=== PATIENT | female | born 1980 | race Caucasian/White ===

== ENCOUNTER 2016-12-23 12:42 | Emergency (ER) | payer OTHER ==
[~2016-12-23] VITALS: Ht 162.6 cm; Wt 100.0 kg
[~2016-12-23 12:42] MED LIST: DOCU100C31 PO; IMIP25TA3 PO; INSU100I2 SC; INSUINJ4 SQ; ONDA4TAB46 PO
[2016-12-23 12:50] VITALS: Ht 162.6 cm; Wt 100.0 kg
[2016-12-23] MEDS ORDERED: HYDROmorphone INJ 2 MG/ML SYR/VIAL IV STA (13:55)
[2016-12-23] MEDS ORDERED: NITROGLYCERIN OINT 2% 1GM PACKET EXT PRN (14:00)
--- NOTE | 2016-12-23 14:08 | EMERGENCY ROOM VISIT NOTE ---
History First contact with patient: 13:44 Chief Complaint: ILLNESS Stated Complaint: CHEST PAIN,ABDOMINAL PAIN AND DIARRHEA History of Present Illness The patient is a 36 year old female with hypertension and recent diverticulitis who presents to the Emergency Room with a 5 day history of LLQ pain, non-bloody , mucous diarrhea. Today she had about 6 loose stools. She also reports a left sided chest pain that went to her left arm, that is currently a 2/10 severity. The chest pain has been waxing and waning. She also reports associated LLQ abdominal pain, which is in the same spot her diverticulitis was. She took a course of antibiotics Dec 05 or so for a week, reports she wasn't sure which ones (likely Cipro/Flagyl). She reports she has multiple allergies to anti-emetics which make her feel weird , but Zofran works. Review of Systems See HPI for pertinent positives & negatives. A total of 10 systems reviewed and were otherwise negative. Past Medical/Surgical History Medical Problems: (1) Hypertension Surgical Problems: (1) H/O tubal ligation (2) History of cholecystectomy (3) Hx of appendectomy Family History Cancer Diabetes mellitus Hypertension Seizures Mother had two strokes, starting at age 36. Father had an [facility] at age 50. Social History Smoking Status: Current Every Day Smoker (1 pack per day) Alcohol Use: none Drug Use: none Marital Status: Housing Status: lives with family Occupation Status: employed Current/Historical Medications Scheduled Amlodipine Besylate (Norvasc), 5 MG PO DAILY Imipramine Hcl (Imipramine Hcl), 50 MG PO HS Insulin Glargine (Lantus Solostar Pen), 75 UNITS SQ QAM Liraglutide (Victoza), 1.8 MG INJ DAILY Losartan Potassium (Cozaar), 100 MG PO DAILY Metoprolol Succinate (Toprol Xl), 25 MG PO DAILY Trazodone Hcl (Trazodone), 100 MG PO HS Scheduled PRN Ondansetron Hcl (Zofran), 4 MG PO Q6 PRN for Nausea Oxycodone/Acetaminophen 5MG/325MG (Percocet 5MG/325MG), 1-2 TAB PO Q4H PRN for Pain Allergies Coded Allergies: Doxycycline (Unverified Allergy, Severe, GI ISSUES. SEVERE VOMITING, ) Ketorolac Tromethamine (Verified Allergy, Unknown, "feels like I am having an anxiety attack", 12/23/16) Metoclopramide (Unverified Allergy, Unknown, HEART RATE INCREASES, ANXIETY , 12/23/16) Prochlorperazine (Verified Allergy, Unknown, "feels like I am having an anxiety attack", 12/23/16) Promethazine (Verified Allergy, Unknown, "feels like I am having an anxiety attack", 12/23/16) Physical Exam Vital Signs Date Time Temp Pulse Resp B/P Pulse Ox O2 Delivery O2 Flow Rate FiO2 12/23/16 16:03 85 18 157/105 98 Room Air 12/23/16 14:48 87 12/23/16 12:50 36.8 93 20 190/89 97 Room Air Physical Exam GENERAL: Awake, alert, well-appearing, in mild distress HENT: Normocephalic, atraumatic. Oropharynx dry. EYES: Normal conjunctiva. Sclera non-icteric. NECK: Supple. No nuchal rigidity. FROM. No JVD. RESPIRATORY: Clear to auscultation. CARDIAC: Regular rate, normal rhythm. Extremities warm and well perfused. Pulses equal. ABDOMEN: Soft, distended, tenderness to LLQ, with guarding. No rebound. Would not allow deep palpation. RECTAL: Deferred. MUSCULOSKELETAL: Chest examination reveals no tenderness. The back is symmetrical on inspection without obvious abnormality. There is no CVA tenderness to palpation. No joint edema. LOWER EXTREMITIES: Calves are equal size bilaterally and non-tender. No edema. No discoloration. NEURO: Normal sensorium. No sensory or motor deficits noted. SKIN: No rash or jaundice noted. Medical Decision & Procedures Laboratory Results 12/23/16 14:10 Red Blood Count 4.81, Mean Corpuscular Volume 86.3, Mean Corpuscular Hemoglobin 29.9, Mean Corpuscular Hemoglobin Concent 34.7, Mean Platelet Volume 10.6, Neutrophils (%) (Auto) 57.5, Lymphocytes (%) (Auto) 29.1, Monocytes (%) (Auto) 11.0, Eosinophils (%) (Auto) 1.8, Basophils (%) (Auto) 0.4, Neutrophils # (Auto ) 2.86, Lymphocytes # (Auto) 1.45, Monocytes # (Auto) 0.55, Eosinophils # (Auto ) 0.09, Basophils # (Auto) 0.02 12/23/16 14:10 Test 12/23/16 14:10 12/23/16 14:16 12/23/16 14:24 White Blood Count 4.98 K/uL (4.8-10.8) Red Blood Count 4.81 M/uL (4.2-5.4) Hemoglobin 14.4 g/dL (12.0-16.0) Hematocrit 41.5 % (37-47) Mean Corpuscular Volume 86.3 fL (80-100) Mean Corpuscular Hemoglobin 29.9 pg (25-34) Mean Corpuscular Hemoglobin Concent 34.7 g/dl (32-36) Platelet Count 178 K/uL (130-400) Mean Platelet Volume 10.6 fL (7.4-10.4) Neutrophils (%) (Auto) 57.5 % Lymphocytes (%) (Auto) 29.1 % Monocytes (%) (Auto) 11.0 % Eosinophils (%) (Auto) 1.8 % Basophils (%) (Auto) 0.4 % Neutrophils # (Auto) 2.86 K/uL (1.4-6.5) Lymphocytes # (Auto) 1.45 K/uL (1.2-3.4) Monocytes # (Auto) 0.55 K/uL (0.11-0.59) Eosinophils # (Auto) 0.09 K/uL (0-0.5) Basophils # (Auto) 0.02 K/uL (0-0.2) RDW Standard Deviation 44.0 fL (36.4-46.3) RDW Coefficient of Variation 13.9 % (11.5-14.5) Immature Granulocyte % (Auto) 0.2 % Immature Granulocyte # (Auto) 0.01 K/uL (0.00-0.02) Anion Gap 11.0 mmol/L (3-11) Est Creatinine Clear Calc Drug Dose 108.3 ml/min Estimated GFR () 106.8 Estimated GFR (Non- 92.1 BUN/Creatinine Ratio 8.8 (10-20) Calcium Level 9.0 mg/dl (8.5-10.1) Total Bilirubin 0.2 mg/dl (0.2-1) Direct Bilirubin < 0.1 mg/dl (0-0.2) Aspartate Amino Transf (AST/SGOT) 19 U/L (15-37) Alanine Aminotransferase (ALT/SGPT) 37 U/L (12-78) Alkaline Phosphatase 98 U/L (45-117) Total Protein 7.3 gm/dl (6.4-8.2) Albumin 3.5 gm/dl (3.4-5.0) Globulin 3.8 gm/dl (2.5-4.0) Albumin/Globulin Ratio 0.9 (0.9-2) Lipase 110 U/L (73-393) Bedside Troponin I 0.000 ng/ml (0-0.045) Bedside Glucose 191 mg/dl (70-90) Medications Administered Medications (Trade) Dose Ordered Sig/Fatimah Route Start Time Stop Time Status Last Admin Dose Admin Hydromorphone HCl 1 mg 1 mg NOW STAT IV 12/23/16 13:55 12/23/16 14:01 DC 12/23/16 14:18 1 MG Sodium Chloride (Nss 1000ml) 1,000 ml @ 999 mls/hr Q1H1M IV 12/23/16 14:15 12/23/16 15:15 DC 12/23/16 14:15 999 MLS/HR Nitroglycerin (Nitroglycerin 2% Oint) 1 inch STK-MED ONCE .ROUTE 12/23/16 14:14 12/23/16 14:16 DC 12/23/16 14:18 1 INCH Hydromorphone HCl (Dilaudid Inj) 0.5 mg NOW STAT IV 12/23/16 17:10 12/23/16 17:11 DC 12/23/16 17:20 0.5 MG ED Course 2PM: The patient was evaluated in room B7. 2:05PM: I discussed the case with Dr. Kelly. I ordered a CXR, labwork ( including CBC, CMP, lipase), CT Abdomen/Pelvis with and without contrast, and a stool sample for C. Diff. I ordered a bolus of normal saline. 3:30PM: I checked on the patient again. She was still drinking the contrast for her CT scan. She reported the pain had improved after dilaudid but now it was slightly returning. I informed her that her labs were so far negative. Medical Decision 36 yo F with recent diverticulitis who presents with 5 days diarrhea, LLQ pain - differential includes recurrent diverticulitis, C. difficile infection, viral gastroenteritis, pancreatitis, [facility]. Her CT scan was negative for any pathology, and she was unable to provide stool for a sample during her time in the ED, so it seemed like her symptoms were likely a transient viral gastroenteritis. She was advised to follow up with GI in the next week for evaluation, and to eat yogurt with probiotics. She was discharged home in good condition. Departure Information Prescriptions Oxycodone/Acetaminophen 5MG/325MG (PERCOCET 5MG/325MG) Tab 1-2 TAB PO Q4H Y for Pain, #14 TAB Prov: Da Kelly MD 12/23/16 Referrals Elli Wagner D.O. (PCP) Patient Instructions My [facility] Resident Tracking Resident Involvement: Resident Care Provided Care Provided: Adult ED
[2016-12-23] MEDS ORDERED: NITROGLYCERIN OINT 2% 1GM PACKET ONE (14:14)
[2016-12-23] MEDS ORDERED: SODIUM CHLORIDE 0.9% 1000ML 1,000 ML IV SCH (14:15)
[2016-12-23] MEDS ORDERED: OPTIRAY 320 IV PRN (14:15)
[2016-12-23 14:21] LABS: BASO % 0.4 %; BASO ABS # 0.02 K/uL (0-0.2); COMPLETE YES; EOS % 1.8 %; HEMATOCRIT 41.5 % (37-47); IG% 0.2 %; LYMPH % 29.1 %; LYMPH ABS # 1.45 K/uL (1.2-3.4); MEAN CELL VOLUME 86.3 fL (80-100); MEAN CORPUSCULAR HEMOGLOBIN 29.9 pg (25-34); MEAN CORPUSCULAR HGB CONC 34.7 g/dl (32-36); MEAN PLATELET VOLUME 10.6 fL (7.4-10.4); NEUT % 57.5 %; PLATELET COUNT 178 K/uL (130-400); RED BLOOD COUNT 4.81 M/uL (4.2-5.4); WHITE BLOOD COUNT 4.98 K/uL (4.8-10.8)
[2016-12-23 14:38] LABS: ALT/SGPT 37 U/L (12-78); BLOOD UREA NITROGEN 7 mg/dl (7-18); BUN/CREATININE RATIO 8.8 (10-20); CARBON DIOXIDE 26 mmol/L (21-32); CHLORIDE 105 mmol/L (98-107); CREATININE 0.81 mg/dl (0.60-1.20); GLUCOSE 212 mg/dl (70-99); POTASSIUM 3.7 mmol/L (3.5-5.1); SODIUM 142 mmol/L (136-145)
--- NOTE | 2016-12-23 14:40 | DIAGNOSTIC IMAGING REPORT ---
CHEST ONE VIEW PORTABLE CLINICAL HISTORY: Chest and abdominal pain. COMPARISON STUDY: Chest radiograph August 17, 2015. FINDINGS: No lucency is identified under the hemidiaphragms to suggest pneumoperitoneum on this exam. Cardiac size is normal. Mediastinal contours are normal. There is no evidence of pulmonary edema. Lungs are clear. There is no pneumothorax or pleural effusion. IMPRESSION: No acute cardiopulmonary findings. Electronically signed by: Lars Beltran M.D. 12/23/2016 2:38 PM Dictated Date/Time: 12/23/2016 2:37 PM
[2016-12-23 14:41] LABS: ALB/GLOB RATIO 0.9 (0.9-2); ALKALINE PHOSPHATASE 98 U/L (45-117); AST/SGOT 19 U/L (15-37)
--- NOTE | 2016-12-23 15:12 | EMERGENCY ROOM VISIT NOTE ---
ED Visit Note First contact with patient: 13:44 Resident Physician Supervision Note: I was present with Dr. Lal during the history and exam. I discussed the case with the resident and agree with the findings and plan as documented in the note. Documented By: Da Kelly Problem List Medical Problems: (1) Hypertension Status: Chronic Surgical Problems: (1) H/O tubal ligation Status: Resolved (2) History of cholecystectomy Status: Resolved (3) Hx of appendectomy Status: Resolved Current/Historical Medications Scheduled Amlodipine Besylate (Norvasc), 5 MG PO DAILY Imipramine Hcl (Imipramine Hcl), 50 MG PO HS Insulin Glargine (Lantus Solostar Pen), 75 UNITS SQ QAM Liraglutide (Victoza), 1.8 MG INJ DAILY Losartan Potassium (Cozaar), 100 MG PO DAILY Metoprolol Succinate (Toprol Xl), 25 MG PO DAILY Trazodone Hcl (Trazodone), 100 MG PO HS Scheduled PRN Ondansetron Hcl (Zofran), 4 MG PO Q6 PRN for Nausea Allergies Coded Allergies: Doxycycline (Unverified Allergy, Severe, GI ISSUES. SEVERE VOMITING, ) Ketorolac Tromethamine (Verified Allergy, Unknown, "feels like I am having an anxiety attack", 12/23/16) Metoclopramide (Unverified Allergy, Unknown, HEART RATE INCREASES, ANXIETY , 12/23/16) Prochlorperazine (Verified Allergy, Unknown, "feels like I am having an anxiety attack", 12/23/16) Promethazine (Verified Allergy, Unknown, "feels like I am having an anxiety attack", 12/23/16) Vital Signs Date Time Temp Pulse Resp B/P Pulse Ox O2 Delivery O2 Flow Rate FiO2 12/23/16 14:48 87 12/23/16 12:50 36.8 93 20 190/89 97 Room Air Laboratory Results 12/23/16 14:10 Red Blood Count 4.81, Mean Corpuscular Volume 86.3, Mean Corpuscular Hemoglobin 29.9, Mean Corpuscular Hemoglobin Concent 34.7, Mean Platelet Volume 10.6, Neutrophils (%) (Auto) 57.5, Lymphocytes (%) (Auto) 29.1, Monocytes (%) (Auto) 11.0, Eosinophils (%) (Auto) 1.8, Basophils (%) (Auto) 0.4, Neutrophils # (Auto ) 2.86, Lymphocytes # (Auto) 1.45, Monocytes # (Auto) 0.55, Eosinophils # (Auto ) 0.09, Basophils # (Auto) 0.02 12/23/16 14:10 Test 12/23/16 14:10 12/23/16 14:16 12/23/16 14:24 White Blood Count 4.98 K/uL (4.8-10.8) Red Blood Count 4.81 M/uL (4.2-5.4) Hemoglobin 14.4 g/dL (12.0-16.0) Hematocrit 41.5 % (37-47) Mean Corpuscular Volume 86.3 fL (80-100) Mean Corpuscular Hemoglobin 29.9 pg (25-34) Mean Corpuscular Hemoglobin Concent 34.7 g/dl (32-36) Platelet Count 178 K/uL (130-400) Mean Platelet Volume 10.6 fL (7.4-10.4) Neutrophils (%) (Auto) 57.5 % Lymphocytes (%) (Auto) 29.1 % Monocytes (%) (Auto) 11.0 % Eosinophils (%) (Auto) 1.8 % Basophils (%) (Auto) 0.4 % Neutrophils # (Auto) 2.86 K/uL (1.4-6.5) Lymphocytes # (Auto) 1.45 K/uL (1.2-3.4) Monocytes # (Auto) 0.55 K/uL (0.11-0.59) Eosinophils # (Auto) 0.09 K/uL (0-0.5) Basophils # (Auto) 0.02 K/uL (0-0.2) RDW Standard Deviation 44.0 fL (36.4-46.3) RDW Coefficient of Variation 13.9 % (11.5-14.5) Immature Granulocyte % (Auto) 0.2 % Immature Granulocyte # (Auto) 0.01 K/uL (0.00-0.02) Anion Gap 11.0 mmol/L (3-11) Est Creatinine Clear Calc Drug Dose 108.3 ml/min Estimated GFR () 106.8 Estimated GFR (Non- 92.1 BUN/Creatinine Ratio 8.8 (10-20) Calcium Level 9.0 mg/dl (8.5-10.1) Total Bilirubin 0.2 mg/dl (0.2-1) Direct Bilirubin < 0.1 mg/dl (0-0.2) Aspartate Amino Transf (AST/SGOT) 19 U/L (15-37) Alanine Aminotransferase (ALT/SGPT) 37 U/L (12-78) Alkaline Phosphatase 98 U/L (45-117) Total Protein 7.3 gm/dl (6.4-8.2) Albumin 3.5 gm/dl (3.4-5.0) Globulin 3.8 gm/dl (2.5-4.0) Albumin/Globulin Ratio 0.9 (0.9-2) Lipase 110 U/L (73-393) Bedside Troponin I 0.000 ng/ml (0-0.045) Bedside Glucose 191 mg/dl (70-90) Medications Administered Medications (Trade) Dose Ordered Sig/Fatimah Route Start Time Stop Time Status Last Admin Dose Admin Hydromorphone HCl 1 mg 1 mg NOW STAT IV 12/23/16 13:55 12/23/16 14:01 DC 12/23/16 14:18 1 MG Sodium Chloride (Nss 1000ml) 1,000 ml @ 999 mls/hr Q1H1M IV 12/23/16 14:15 12/23/16 15:15 12/23/16 14:15 999 MLS/HR Nitroglycerin (Nitroglycerin 2% Oint) 1 inch STK-MED ONCE .ROUTE 12/23/16 14:14 12/23/16 14:16 DC 12/23/16 14:18 1 INCH Departure Information Referrals Elli Wagner D.O. (PCP) Patient Instructions My [facility]
--- NOTE | 2016-12-23 17:02 | DIAGNOSTIC IMAGING REPORT ---
CT OF THE ABDOMEN AND PELVIS WITH CONTRAST CLINICAL HISTORY: Recent diverticulitis, 4 day history of diarrhea. Left lower quadrant abdominal pain. COMPARISON STUDY: CT of the abdomen and pelvis June 19, 2016. TECHNIQUE: Following IV administration of 116 mL of Optiray-320, axial images of the abdomen and pelvis were obtained from the lung bases to the proximal femurs. Images were reviewed in the axial, sagittal, and coronal planes. IV contrast was administered without complication. Oral contrast was administered. CT DOSE: 1104.96 mGy.cm FINDINGS: Lung bases are clear. There is suspected fatty infiltration of the liver. The gallbladder is surgically absent. Nodularity of the left adrenal gland is unchanged since CT of July 26, 2014. The spleen, right adrenal gland and kidneys are unremarkable. There is no hydronephrosis. There is no peripancreatic infiltration. The appendix is not visualized. There is no evidence for a bowel obstruction. There is mild wall thickening of the distal descending colon, sigmoid colon and rectum. This is likely due to underdistention. There is scattered colonic diverticula without evidence for acute diverticulitis. There is no free air, pneumatosis or portal venous gas. There is a dominant follicle within the right ovary. Skeletal structures are unremarkable. IMPRESSION: 1. Mild wall thickening of the distal descending colon, sigmoid colon and rectum. This is likely due to underdistention although a mild nonspecific colitis could appear similar. 2. No definite acute process within the abdomen or pelvis. 3. Fatty liver. 4. Scattered colonic diverticula without evidence for acute diverticulitis. Electronically signed by: Lars Beltran M.D. 12/23/2016 5:00 PM Dictated Date/Time: 12/23/2016 4:55 PM
[2016-12-23] MEDS ORDERED: OXYC-57 PO (17:05)
[2016-12-23] MEDS ORDERED: HYDROmorphone INJ 0.5 MG/0.5 ML SYR IV STA (17:10)
[2016-12-23 18:02] VITALS: BP 155/99; PULSE 85; TEMP 36.8; O2SAT 98
--- NOTE | 2016-12-28 11:47 | EDITING REQUIRED CODING QUERY ---
CODING QUERY To promote full compliance with coding requirements relating to patient care, provider participation is requested in all cases of crab fisherman uncertainty. Please assist us with the question(s) below: Coding Question(s): Please provide final DX for this patient Physician's Response(s): diarrhea Thank you Ting Hernandez Principal Diagnosis: "_that condition established after study, to be chiefly responsible for occasioning the admission of the patient to the hospital for care." Co-Existing Principal Diagnosis: "_when two or more diagnoses equally meet the criteria for principal diagnosis as determined by the circumstances of admission, diagnostic work up, and/or therapy provided, and the Alphabetic Index, Tabular List, or another coding guideline does not provide sequencing direction, any one of the diagnoses may be sequenced first." "When the physician has documented what appears to be a current diagnosis in the body of the record, but has not included the diagnosis in the final diagnostic statement, the physician should be asked whether the diagnosis should be added." (Source [facility] 2 QTR90. p3-4)
[2017-02-27] MEDS ORDERED: LIRA18IN INJ (11:53)
== END 2016-12-23 17:58 | disposition home or self-care (01) ==
LOC: C.EDB 12:44
DX: R19.7 Diarrhea, unspecified (principal); I10 Essential (primary) hypertension; Z98.51 Tubal ligation status; F17.200 Nicotine dependence, unspecified, uncomplicated; Z80.9 Family history of malignant neoplasm, unspecified; Z83.3 Family history of diabetes mellitus; Z82.0 Family history of epilepsy and other diseases of the nervous system

== ENCOUNTER 2017-01-27 13:27 | Emergency (ER) | payer OTHER ==
[~2017-01-27] VITALS: Ht 163.8 cm; Wt 105.4 kg
[~2017-01-27 13:27] MED LIST changes: -DOCU100C31 PO; -INSU100I2 SC; +OXYC-57 PO
[2017-01-27 13:32] VITALS: Ht 163.8 cm; Wt 105.4 kg
[2017-01-27 15:29] LABS: BASO % 0.2 %; BASO ABS # 0.02 K/uL (0-0.2); COMPLETE YES; EOS % 0.5 %; HEMATOCRIT 41.2 % (37-47); IG% 0.2 %; LYMPH % 15.9 %; LYMPH ABS # 1.99 K/uL (1.2-3.4); MEAN CELL VOLUME 85.7 fL (80-100); MEAN CORPUSCULAR HEMOGLOBIN 30.4 pg (25-34); MEAN CORPUSCULAR HGB CONC 35.4 g/dl (32-36); MEAN PLATELET VOLUME 11.2 fL (7.4-10.4); MONO % 4.8 %; NEUT % 78.4 %; PLATELET COUNT 188 K/uL (130-400); RED BLOOD COUNT 4.81 M/uL (4.2-5.4)
[2017-01-27] MEDS ORDERED: ONDANSETRON INJ 2 MG/ML 2 ML VIAL IV STA (15:31)
[2017-01-27] MEDS ORDERED: HYDROmorphone INJ 1 MG/ML SYR IV STA (15:31)
[2017-01-27 15:47] LABS: BUN/CREATININE RATIO 13.9 (10-20); CALCIUM 8.7 mg/dl (8.5-10.1); CREATININE 0.82 mg/dl (0.60-1.20); POTASSIUM 3.6 mmol/L (3.5-5.1)
[2017-01-27 15:49] LABS: ALB/GLOB RATIO 0.9 (0.9-2)
--- NOTE | 2017-01-27 16:27 | DIAGNOSTIC IMAGING REPORT ---
ABDOMEN AND PELVIS CT WITHOUT CONTRAST CT DOSE: 1805.72 mGy.cm HISTORY: Flank pain severe l flank pain TECHNIQUE: Multiaxial CT images of the abdomen and pelvis were performed without contrast. COMPARISON STUDY: 12/23/2016 FINDINGS: Lung bases are clear. Liver spleen and pancreas are unremarkable. Evidence for prior cholecystectomy. Mild stable hyperplastic change of the adrenal glands. Kidneys negative for calcification or hydronephrosis. Ureters normal in course and caliber. Bladder is midline. There are no contained calcifications. There are bilateral ovarian cysts. This measures 2.5 cm on the left and 2.2 cm on the right. There again is a suggestion of mild wall thickening of the distal descending colon as well as proximal to mid sigmoid. This may be secondary to a mild nonspecific colitis, although it is considered less prominent on CT criteria as compared to the prior study. Bowel pattern is otherwise unremarkable. There is no evidence for abscess collection or obstruction. IMPRESSION: 1. Mild circumferential wall thickening of the distal descending colon as well as proximal to mid sigmoid. 2. This is similar in pattern as compared to the prior study and may relate to a chronic nonspecific colitis. 3. Bilateral ovarian cysts. 4. Study is otherwise negative. Electronically signed by: Jun Fernandez M.D. 01/27/2017 4:25 PM Dictated Date/Time: 01/27/2017 4:20 PM
[2017-01-27 16:30] LABS: MANUAL MICROSCOPIC REQUIRED? NO; URINE APPEARANCE CLEAR (CLEAR); URINE BILIRUBIN NEG (NEG); URINE COLOR YELLOW; URINE NITRITE NEG (NEG); URINE PH 6.5 (4.5-7.5); UROBILINOGEN NEG (NEG)
[2017-01-27 16:31] LABS: REVIEW REQ? NO
[2017-01-27 16:32] LABS: ZZUR CULT IF INDIC CLEAN CATCH NO
[2017-01-27] MEDS ORDERED: MoRPHine SULFATE 10 MG/ML CARP/VIAL IV STA (17:07)
[2017-01-27] MEDS ORDERED: MoRPHine SULFATE 4 MG/ML 1 ML CARP\\VIAL ONE (17:17)
[2017-01-27] MEDS ORDERED: MoRPHine SULFATE 2 MG/ML CARP ONE (17:18)
[2017-01-27 17:39] VITALS: BP 153/97; PULSE 84; TEMP 37; O2SAT 96
--- NOTE | 2017-01-27 18:24 | EMERGENCY ROOM VISIT NOTE ---
History Report prepared by Kaya: Dat Myers Under the Supervision of: Dr. Steven Mota D.O. First contact with patient: 15:12 Chief Complaint: ABDOMINAL PAIN Stated Complaint: SEVERE BACK AND ABD. PAIN Nursing Triage Summary: Patient c/o left sided abdominal pain and nausea since 7 am. Diarrhea x 1 1/2 weeks. History of Present Illness The patient is a 36 year old female who presents to the Emergency Room with complaints of left sided abdominal pain that began this morning. She rates her current discomfort a 9/10 in severity. Her pain began in her back and radiated around to her abdomen. She has also been experiencing nausea and diarrhea. She has a past medical history of kidney stones, but she does not know if this pain is similar to that pain. She notes that the pain from her abdomen and radiates up into her upper abdomen/lower chest when he becomes very severe. Patient has no exertional chest pain or shortness of breath. No chest pain onto itself. She also admits to persistent diarrhea that has been present for the past 2-3 weeks. No previous stool cultures. Patient denies headache, change in vision, fevers, chest pain, shortness of breath, vomiting, pain with urination, and melena. She also has a past medical history of diabetes and hypertension. Source of History: patient Onset: this morning Position: abdomen (LUQ) Symptom Intensity: 9/10 Quality: sharp Timing: constant Associated Symptoms: + back pain, + diarrhea, + nausea, No SOB, No chills, No cough, No fevers, No headache, No hematochezia, No melena, No sorethroat, No urinary symptoms, No vomiting Review of Systems See HPI for pertinent positives & negatives. A total of 10 systems reviewed and were otherwise negative. Past Medical & Surgical Medical Problems: (1) Hypertension Surgical Problems: (1) H/O tubal ligation (2) History of cholecystectomy (3) Hx of appendectomy Family History Cancer Diabetes mellitus Hypertension Seizures Social History Smoking Status: Current Every Day Smoker Alcohol Use: none Drug Use: none Marital Status: Housing Status: lives with family Occupation Status: employed Current/Historical Medications Scheduled Amlodipine Besylate (Norvasc), 5 MG PO DAILY Insulin Glargine (Lantus Solostar Pen), 100 UNITS SQ QAM Liraglutide (Victoza), 1.8 MG INJ DAILY Losartan Potassium (Cozaar), 100 MG PO DAILY Metoprolol Succinate (Toprol Xl), 25 MG PO DAILY Trazodone Hcl (Trazodone), 100 MG PO HS Scheduled PRN Ondansetron Hcl (Zofran), 4 MG PO Q6 PRN for Nausea Allergies Coded Allergies: Doxycycline (Unverified Allergy, Severe, GI ISSUES. SEVERE VOMITING, ) Ketorolac Tromethamine (Verified Allergy, Unknown, "feels like I am having an anxiety attack", 01/27/17) Metoclopramide (Unverified Allergy, Unknown, HEART RATE INCREASES, ANXIETY , 01/27/17) Prochlorperazine (Verified Allergy, Unknown, "feels like I am having an anxiety attack", 01/27/17) Promethazine (Verified Allergy, Unknown, "feels like I am having an anxiety attack", 01/27/17) Venlafaxine (Unverified Allergy, Unknown, TREMORS, 01/27/17) Physical Exam Vital Signs Date Time Temp Pulse Resp B/P Pulse Ox O2 Delivery O2 Flow Rate FiO2 01/27/17 17:39 37.0 84 18 153/97 96 01/27/17 17:31 84 18 153/97 96 Room Air 01/27/17 15:58 81 18 163/114 96 Room Air 01/27/17 13:32 37.0 98 18 187/116 98 Room Air Physical Exam GENERAL: Sitting up in bed, disheveled, holding her left flank, alert, well appearing, well nourished, no distress, non-toxic EYE EXAM: normal conjunctiva OROPHARYNX: no exudate, no erythema, lips, buccal mucosa, and tongue normal and mucous membranes are moist NECK: supple, no nuchal rigidity, no adenopathy, non-tender LUNGS: Clear to auscultation. Normal chest wall mechanics HEART: no murmurs, S1 normal and S2 normal ABDOMEN: abdomen soft, minimal tenderness, normo-active bowel sounds, no masses , no rebound or guarding. BACK: Back is symmetrical on inspection and there is no deformity, no midline tenderness, no CVA tenderness. SKIN: no rashes and no bruising UPPER EXTREMITIES: upper extremities are grossly normal. LOWER EXTREMITIES: No pitting edema. NEURO EXAM: Normal sensorium, cranial nerves II-XII grossly intact, normal speech, no gross weakness of arms, no gross weakness of legs. Medical Decision & Procedures ER Provider Diagnostic Interpretation: Xray results per the radiologist and my interpretation. Other results have been interpreted by the radiologist and reviewed by me. ABDOMEN AND PELVIS CT WITHOUT CONTRAST CT DOSE: 1805.72 mGy.cm HISTORY: Flank pain severe l flank pain TECHNIQUE: Multiaxial CT images of the abdomen and pelvis were performed without contrast. COMPARISON STUDY: 12/23/2016 FINDINGS: Lung bases are clear. Liver spleen and pancreas are unremarkable. Evidence for prior cholecystectomy. Mild stable hyperplastic change of the adrenal glands. Kidneys negative for calcification or hydronephrosis. Ureters normal in course and caliber. Bladder is midline. There are no contained calcifications. There are bilateral ovarian cysts. This measures 2.5 cm on the left and 2.2 cm on the right. There again is a suggestion of mild wall thickening of the distal descending colon as well as proximal to mid sigmoid. This may be secondary to a mild nonspecific colitis, although it is considered less prominent on CT criteria as compared to the prior study. Bowel pattern is otherwise unremarkable. There is no evidence for abscess collection or obstruction. IMPRESSION: 1. Mild circumferential wall thickening of the distal descending colon as well as proximal to mid sigmoid. 2. This is similar in pattern as compared to the prior study and may relate to a chronic nonspecific colitis. 3. Bilateral ovarian cysts. 4. Study is otherwise negative. Electronically signed by: Jun Fernandez M.D. 01/27/2017 4:25 PM Dictated Date/Time: 01/27/2017 4:20 PM Laboratory Results 01/27/17 15:16 Red Blood Count 4.81, Mean Corpuscular Volume 85.7, Mean Corpuscular Hemoglobin 30.4, Mean Corpuscular Hemoglobin Concent 35.4, Mean Platelet Volume 11.2, Neutrophils (%) (Auto) 78.4, Lymphocytes (%) (Auto) 15.9, Monocytes (%) (Auto) 4.8, Eosinophils (%) (Auto) 0.5, Basophils (%) (Auto) 0.2, Neutrophils # (Auto) 9.80, Lymphocytes # (Auto) 1.99, Monocytes # (Auto) 0.60, Eosinophils # (Auto) 0.06, Basophils # (Auto) 0.02 01/27/17 15:16 Test 01/27/17 15:16 01/27/17 16:00 01/27/17 16:53 White Blood Count 12.50 K/uL (4.8-10.8) Red Blood Count 4.81 M/uL (4.2-5.4) Hemoglobin 14.6 g/dL (12.0-16.0) Hematocrit 41.2 % (37-47) Mean Corpuscular Volume 85.7 fL (80-100) Mean Corpuscular Hemoglobin 30.4 pg (25-34) Mean Corpuscular Hemoglobin Concent 35.4 g/dl (32-36) Platelet Count 188 K/uL (130-400) Mean Platelet Volume 11.2 fL (7.4-10.4) Neutrophils (%) (Auto) 78.4 % Lymphocytes (%) (Auto) 15.9 % Monocytes (%) (Auto) 4.8 % Eosinophils (%) (Auto) 0.5 % Basophils (%) (Auto) 0.2 % Neutrophils # (Auto) 9.80 K/uL (1.4-6.5) Lymphocytes # (Auto) 1.99 K/uL (1.2-3.4) Monocytes # (Auto) 0.60 K/uL (0.11-0.59) Eosinophils # (Auto) 0.06 K/uL (0-0.5) Basophils # (Auto) 0.02 K/uL (0-0.2) RDW Standard Deviation 43.2 fL (36.4-46.3) RDW Coefficient of Variation 13.9 % (11.5-14.5) Immature Granulocyte % (Auto) 0.2 % Immature Granulocyte # (Auto) 0.03 K/uL (0.00-0.02) Anion Gap 10.0 mmol/L (3-11) Est Creatinine Clear Calc Drug Dose 111.1 ml/min Estimated GFR () 105.2 Estimated GFR (Non- 90.8 BUN/Creatinine Ratio 13.9 (10-20) Calcium Level 8.7 mg/dl (8.5-10.1) Total Bilirubin 0.2 mg/dl (0.2-1) Aspartate Amino Transf (AST/SGOT) 13 U/L (15-37) Alanine Aminotransferase (ALT/SGPT) 32 U/L (12-78) Alkaline Phosphatase 87 U/L (45-117) Total Protein 7.2 gm/dl (6.4-8.2) Albumin 3.4 gm/dl (3.4-5.0) Globulin 3.8 gm/dl (2.5-4.0) Albumin/Globulin Ratio 0.9 (0.9-2) Lipase 139 U/L (73-393) Urine Color YELLOW Urine Appearance CLEAR (CLEAR) Urine pH 6.5 (4.5-7.5) Urine Specific [place] 1.010 (1.000-1.030) Urine Protein NEG (NEG) Urine Glucose (UA) 3+ (NEG) Urine Ketones NEG (NEG) Urine Occult Blood NEG (NEG) Urine Nitrite NEG (NEG) Urine Bilirubin NEG (NEG) Urine Urobilinogen NEG (NEG) Urine Leukocyte Esterase NEG (NEG) Lactic Acid Level 1.8 mmol/L (0.4-2.0) Laboratory results per my review. Medications Administered Medications (Trade) Dose Ordered Sig/Fatimah Route Start Time Stop Time Status Last Admin Dose Admin Ondansetron HCl (Zofran Inj) 4 mg NOW STAT IV 01/27/17 15:31 01/27/17 15:32 DC 01/27/17 15:54 4 MG Hydromorphone HCl (Dilaudid Inj) 1 mg NOW STAT IV 01/27/17 15:31 01/27/17 15:32 DC 01/27/17 15:57 1 MG Morphine Sulfate (MoRPHine SULFATE INJ) 4 mg STK-MED ONCE .ROUTE 01/27/17 17:17 01/27/17 17:20 DC 01/27/17 17:24 4 MG Morphine Sulfate (MoRPHine SULFATE INJ) 2 mg STK-MED ONCE .ROUTE 01/27/17 17:18 01/27/17 17:21 DC 01/27/17 17:25 2 MG ED Course ED COURSE: Vital signs were reviewed and showed hypertension The patients medical record was reviewed The above diagnostic studies were performed and reviewed. ED treatments and interventions as stated above. 1512: The patient was evaluated in room B11B. A complete history and physical examination was performed. 1531: Dilaudid Inj 1 mg IV, Zofran Inj 4 mg IV 1705: The patient would like something for the pain. She was also unsuccessful in providing a stool sample. 1707: Morphine Sulfate 6 mg IV 1717: Morphine Sulfate 4 mg IV .ROUTE 1718: Morphine Sulfate 2 mg .ROUTE 1740: Upon reevaluation, the patient is resting. I discussed my findings with the patient and she understands and agrees with the treatment plan. The patient remained stable while under my care. The patient appeared well at the time of discharge. Medical Decision Differential diagnoses includes but is not limited to gastritis, peptic ulcer disease, GERD, gallbladder disease, pancreatitis, small bowel obstruction, acute coronary syndrome, pericarditis, ischemic bowel, irritable bowel disease, irritable bowel syndrome, appendicitis, diverticulitis, malignancy, hernia, urinary tract infection, torsion, /ectopic , perforation, trauma, infectious. Patient is a 28-year-old female who presents the ER for left back pain which is now radiating up into her left-sided abdomen. She notes that this feels fairly similar to previous stone. Critical pathways were placed by nursing staff. Labs show a mild leukocytosis of 12.5 thousand. BMP was unremarkable with the exception of a BSG of 290. Lactic acid was normal at 18. LFTs and bilirubin were normal. Lipase is normal. UA was normal as well with exception of +[address] of the abdomen and pelvis shows mild wall thickening of the descending colon and proximal sigmoid which is unchanged from her previous CT. She does have bilateral ovarian cysts. No evidence of torsion on CT. CT was done prior to the results of the but there is no extrauterine or intrauterine seen on CT and consequently I did not feel is prudent at this time. I attempted to obtain stool culture but she cannot give us a stool sample. Patient felt significantly better following fluids and 2 doses of IV narcotics. She was discharged to follow-up with her primary care doctor tomorrow for abdominal recheck. Discussed with Pt concerning signs and symptoms to watch out for. Pt was instructed to follow up with their PCP and discussed with the patient their option to return to the ED at anytime for persistent or worsening symptoms. The appropriate anticipatory guidance and out-patient management, including indications for return to the emergency department, were explained at length to the patient and understood. Impression Primary Impression: LLQ abdominal pain Additional Impression: Diarrhea Scribe Attestation The scribe's documentation has been prepared under my direction and personally reviewed by me in its entirety. I confirm that the note above accurately reflects all work, treatment, procedures, and medical decision making performed by me. Departure Information Dispostion Home / Self-Care Referrals Elli Wagner D.O. Forms Call Back Authorization, HOME CARE DOCUMENTATION FORM, IMPORTANT VISIT INFORMATION Patient Instructions Abdominal Pain - [facility] Additional Instructions Please follow up with your primary care doctor with in the next 24 hours. Any worsening of your symptoms, please return to the ED immediately. This includes fevers greater than 100.4, persistent nausea vomiting, unable to eat or drink, bloody stool, passing out, or any other concerning signs or symptoms from your standpoint. Again please follow up with your primary care doctor tomorrow to have an abdominal recheck. Problem Qualifiers Additional Impression: Diarrhea Diarrhea type: unspecified type Qualified Codes: R19.7 - Diarrhea, unspecified
[2017-02-27] MEDS ORDERED: LIRA18IN INJ (11:53)
== END 2017-01-27 17:40 | disposition home or self-care (01) ==
LOC: C.EDB 13:29
DX: R10.32 Left lower quadrant pain (principal); R19.7 Diarrhea, unspecified; I10 Essential (primary) hypertension; Z80.9 Family history of malignant neoplasm, unspecified; Z83.3 Family history of diabetes mellitus; Z82.49 Family history of ischemic heart disease and other diseases of the circulatory system; F17.210 Nicotine dependence, cigarettes, uncomplicated; Z79.4 Long term (current) use of insulin; Z79.899 Other long term (current) drug therapy

== ENCOUNTER 2017-02-27 15:25 | Emergency (ER) | payer OTHER ==
[~2017-02-27] VITALS: Ht 162.6 cm; Wt 106.4 kg
[~2017-02-27 15:25] MED LIST changes: -IMIP25TA3 PO; +LIRA18IN INJ; -OXYC-57 PO
[2017-02-27 15:30] VITALS: BP 202/95; PULSE 100; TEMP 36.6; O2SAT 100; Ht 162.6 cm; Wt 106.4 kg
--- NOTE | 2017-02-27 15:52 | DIAGNOSTIC IMAGING REPORT ---
RIGHT SHOULDER 3 VIEWS CLINICAL HISTORY: Right shoulder injury. FINDINGS: 3 views of the right shoulder are obtained. No prior studies are available for comparison at the time of dictation. The skeletal structures are well mineralized. No fracture or dislocation is seen. The glenohumeral and acromioclavicular joints appear well-maintained. The overlying soft tissues are within normal limits. Imaged right lung parenchyma appears clear. IMPRESSION: No acute bony abnormality is seen in the right shoulder. Electronically signed by: Yuri Sherman M.D. 02/27/2017 3:50 PM Dictated Date/Time: 02/27/2017 3:49 PM
[2017-02-27] MEDS ORDERED: INSDGIPEN SC (16:05)
[2017-02-27] MEDS ORDERED: PRED50TA PO (16:08)
[2017-02-27] MEDS ORDERED: CYCL10TA6 PO (16:08)
[2017-02-27] MEDS ORDERED: METO25TA3 PO (16:31)
[2017-02-27] MEDS ORDERED: TRAZ100T29 PO (16:31)
[2017-02-27] MEDS ORDERED: LOSA1TAB38 PO (16:31)
[2017-02-27] MEDS ORDERED: AMLO5TAB2 PO (18:06)
--- NOTE | 2017-02-28 15:24 | EMERGENCY ROOM VISIT NOTE ---
History First contact with patient: 15:38 Chief Complaint: SHOULDER PAIN Stated Complaint: RIGHT SHOULDER PAIN History of Present Illness The patient is a 36 year old female who presents to the Emergency Room with complaints of right shoulder pain for the past one day. The patient states that she was at work and was getting a box down from on top of a shelf. As the box was coming down and she stumbled backwards, and struck into a shelf behind her. She states she struck the back of her right scapula which caused immediate pain. She does not have significant laceration or previous injury to this area. The patient states that she went home, took her last tramadol that was prescribed by her primary care physician, and went to sleep. Now today she has worsening pain and decreased range of motion. She rates her pain an 8/10. No numbness or paresthesias. Review of Systems More than 10 systems were reviewed and otherwise negative with the exception of history of present illness. Past Medical/Surgical History Medical Problems: (1) Hypertension Surgical Problems: (1) H/O tubal ligation (2) History of cholecystectomy (3) Hx of appendectomy Family History Cancer Diabetes mellitus Hypertension Seizures Social History Smoking Status: Current Every Day Smoker Alcohol Use: none Drug Use: none Marital Status: Housing Status: lives with family Occupation Status: employed Current/Historical Medications Scheduled Amlodipine Besylate (Norvasc), 5 MG PO DAILY Cyclobenzaprine Hcl (Flexeril), 10 MG PO TID Insulin Glargine (Lantus Solostar), 100 UNITS SC QAM Liraglutide (Victoza), 1.8 MG INJ DAILY Losartan Potassium (Cozaar), 100 MG PO DAILY Metoprolol Succinate (Toprol Xl), 25 MG PO DAILY Prednisone (Prednisone), 50 MG PO DAILY Trazodone Hcl (Trazodone), 100 MG PO HS Allergies Coded Allergies: Doxycycline (Unverified Allergy, Severe, GI ISSUES. SEVERE VOMITING, ) Ketorolac Tromethamine (Verified Allergy, Unknown, "feels like I am having an anxiety attack", 01/27/17) Metoclopramide (Unverified Allergy, Unknown, HEART RATE INCREASES, ANXIETY , 01/27/17) Prochlorperazine (Verified Allergy, Unknown, "feels like I am having an anxiety attack", 01/27/17) Promethazine (Verified Allergy, Unknown, "feels like I am having an anxiety attack", 01/27/17) Venlafaxine (Unverified Allergy, Unknown, TREMORS, 01/27/17) Physical Exam Vital Signs Date Time Temp Pulse Resp B/P Pulse Ox O2 Delivery O2 Flow Rate FiO2 02/27/17 15:30 36.6 100 18 202/95 100 Room Air Pain Rating (0-10): 7.0 Physical Exam VITALS: Vitals are noted on the nurse's note and reviewed by myself. Vital signs stable. GENERAL: Well-developed, well-nourished, white female, who is in no acute distress and resting comfortably. Patient is cooperative with the examination. HEAD: Normocephalic atraumatic. NECK: Supple without nuchal rigidity. No lymphadenopathy. No thyromegaly. Cervical spine is nontender. HEART: Regular rate and rhythm without murmurs gallops or rubs. LUNGS: Clear to auscultation bilaterally without wheezes, rales or rhonchi. No retractions or accessory muscle use. MUSCULOSKELETAL: No muscle atrophy, erythema, or edema noted. Very mild tenderness over the posterior scapula over the scapular ridge. The patient is with full range of motion of the extremity. Range of motion does exacerbate tenderness. NEURO: Patient was alert and oriented to person place and time. CN II through XII grossly intact. Medical Decision & Procedures ER Provider Diagnostic Interpretation: RIGHT SHOULDER 3 VIEWS CLINICAL HISTORY: Right shoulder injury. FINDINGS: 3 views of the right shoulder are obtained. No prior studies are available for comparison at the time of dictation. The skeletal structures are well mineralized. No fracture or dislocation is seen. The glenohumeral and acromioclavicular joints appear well-maintained. The overlying soft tissues are within normal limits. Imaged right lung parenchyma appears clear. IMPRESSION: No acute bony abnormality is seen in the right shoulder. ED Course Physical exam and history were performed. Nursing notes and EMR were reviewed. Patient appears to have right shoulder pain after a contusion injury yesterday. X-rays were obtained and did not show evidence of fracture or dislocation. The patient does have discomfort with range of motion, but is able to perform this. I suspect her discomfort is from the contusion and subsequent swelling. I discussed options of care with the patient, who requested pain medication. I did review the patient's [place] drug monitoring profile, and she had a 30 day supply of tramadol provided by her primary care physician on February 04, roughly 3 weeks ago. The patient should have more than adequate of this medication remaining. The patient was not able to adequately reconcile why she did not have her tramadol. I explained that we were not able to provide pain medication to her for this, as she should have this at home. The patient will be given an arm sling, prednisone, and Flexeril. She is to follow with her primary care physician or with orthopedics for further care and management. I do have concern that the patient may be taking her medication at an accelerated level. She should have 9 or 10 days of tramadol remaining, but states that she does not have any. She does have several visits to this facility for pain related complaints over the past year. Her drug monitoring profile also shows that she is presenting to [facility] ER, which is much closer to where she lives. The patient case will need to be reviewed. I do recommend at least a watch and wait level out of concern for seeking. The chart was completed utilizing [employer] Voice Recognition Software. Grammatical errors, random word insertions, pronoun errors, and incomplete sentences are an occasional consequence of this system due to software limitations, ambient noise, and hardware issues. Any formal questions or concerns about the content, text, or information contained within the body of this dictation should be directly addressed to the provider for clarification. . Medical Decision Differential diagnosis includes, but is not limited to: Sprain, strain, fracture , dislocation, subluxation, contusion, and others Impression Primary Impression: Injury of right shoulder Departure Information Dispostion Home / Self-Care Condition GOOD Prescriptions Prednisone (Prednisone) 50 Mg Tab 50 MG PO DAILY for 4 Days, #4 TAB Prov: Seferino Roberts PA-C 02/27/17 Cyclobenzaprine Hcl (FLEXERIL) 10 Mg Tab 10 MG PO TID for 5 Days, #15 TAB Prov: Seferino Roberts PA-C 02/27/17 Forms HOME CARE DOCUMENTATION FORM, IMPORTANT VISIT INFORMATION Patient Instructions My [facility] Additional Instructions You were seen and evaluated today on an emergency basis only. This is not a substitute for, or an effort to provide, complete comprehensive medical care. It is not possible to recognize and treat all injuries or illnesses in a single emergency department visit. For this reason it is recommended that you followup with your primary care physician or orthopedist back home for ongoing care and evaluation. You may use your arm sling for comfort. Continue tramadol as previously prescribed. Take prednisone once daily for the next 4 days. Flexeril 1 tablet up to 3 times a day as needed for muscle spasms. No driving, working, or alcohol use with Flexeril. You are welcome to return to the emergency department anytime with new, worsening, or concerning symptoms.
== END 2017-02-27 16:27 | disposition home or self-care (01) ==
LOC: C.EDB 15:27 → C.EDD 16:27
DX: S49.91XA Unspecified injury of right shoulder and upper arm, initial encounter (principal); W22.09XA Striking against other stationary object, initial encounter; Y99.0 Civilian activity done for income or pay; I10 Essential (primary) hypertension; F17.200 Nicotine dependence, unspecified, uncomplicated; Z83.3 Family history of diabetes mellitus; Z82.49 Family history of ischemic heart disease and other diseases of the circulatory system; Z82.0 Family history of epilepsy and other diseases of the nervous system

== ENCOUNTER 2017-07-27 12:28 | Emergency (ER) | payer OTHER ==
[~2017-07-27] VITALS: Ht 162.6 cm; Wt 105.6 kg
[~2017-07-27 12:28] MED LIST changes: +AMLO5TAB2 PO; +INSDGIPEN SC; -INSUINJ4 SQ; +LOSA1TAB38 PO; +METO25TA3 PO; -ONDA4TAB46 PO; +TRAZ100T29 PO
[2017-07-27 12:43] VITALS: TEMP 36.8; Ht 162.6 cm; Wt 105.6 kg
[2017-07-27] MEDS ORDERED: ONDANSETRON INJ 2 MG/ML 2 ML VIAL IV STA ×2 (12:55→14:44)
[2017-07-27] MEDS ORDERED: SODIUM CHLORIDE 0.9% 1000ML 1,000 ML IV STA (12:55)
[2017-07-27] MEDS ORDERED: MoRPHine SULFATE 4 MG/ML 1 ML CARP\\VIAL IV STA ×2 (12:55→14:44)
[2017-07-27] MEDS ORDERED: HYOS0.1271 PO (13:12)
[2017-07-27 13:20] LABS: URINE APPEARANCE CLEAR (CLEAR); URINE BILIRUBIN NEG (NEG); URINE COLOR ORANGE; URINE EPITHELIAL CELL AUTO >30 /lpf (0-5); URINE NITRITE NEG (NEG); UROBILINOGEN NEG (NEG)
[2017-07-27 13:21] LABS: MANUAL MICROSCOPIC REQUIRED? NO; REVIEW REQ? NO
[2017-07-27 13:21] LABS: PREG INTERNAL NEGATIVE QC NEG CLEAR BACKGROUND; PREG INTERNAL POSITIVE QC POS CONTROL LINE
[2017-07-27 13:35] LABS: BASO % 0.2 %; BASO ABS # 0.02 K/uL (0-0.2); COMPLETE YES; EOS % 1.5 %; HEMATOCRIT 41.9 % (37-47); IG% 0.2 %; LYMPH % 21.6 %; LYMPH ABS # 1.77 K/uL (1.2-3.4); MEAN CELL VOLUME 89.5 fL (80-100); MEAN CORPUSCULAR HEMOGLOBIN 32.3 pg (25-34); MEAN PLATELET VOLUME 11.5 fL (7.4-10.4); MONO % 6.3 %; NEUT % 70.2 %; PLATELET COUNT 195 K/uL (130-400); RED BLOOD COUNT 4.68 M/uL (4.2-5.4); WHITE BLOOD COUNT 8.21 K/uL (4.8-10.8)
[2017-07-27 13:44] LABS: BUN/CREATININE RATIO 19.6 (10-20); CALCIUM 9.2 mg/dl (8.5-10.1); CREATININE 0.81 mg/dl (0.60-1.20); POTASSIUM 3.8 mmol/L (3.5-5.1)
[2017-07-27] MEDS ORDERED: OPTIRAY 320 IV PRN (14:00)
--- NOTE | 2017-07-27 14:40 | DIAGNOSTIC IMAGING REPORT ---
EXAMINATION: RENAL ULTRASOUND CLINICAL HISTORY: Right flank pain COMPARISON STUDY: CT scan dated 01/27/2017 FINDINGS: The right kidney measures 12.3 cm. The left kidney measures 12.9 cm. There is no evidence of hydronephrosis. There are no renal masses. No bladder abnormalities are visualized. Bilateral ureteral jets were visualized. IMPRESSION : Normal renal ultrasound. Electronically signed by: Wilberto Posey M.D. 07/27/2017 2:39 PM Dictated Date/Time: 07/27/2017 2:38 PM
--- NOTE | 2017-07-27 16:36 | DIAGNOSTIC IMAGING REPORT ---
CT ABD/PELVIS IV AND ORAL CONT CLINICAL HISTORY: Right sided abdominal pain COMPARISON STUDY: 01/27/2017 TECHNIQUE: Following the IV administration of 120 mL of Optiray-320, CT scan of the abdomen and pelvis was performed from the lung bases to the proximal femurs. Images are reviewed in the axial, sagittal, and coronal planes. IV contrast was administered without complication. A dose lowering technique was utilized adhering to the principles of ALARA. CT DOSE: 1052.89 mGy.cm FINDINGS: Lower chest: The heart is normal in size and configuration, without pericardial effusion. The lung bases and pleural spaces are clear. Liver: There is mild hepatic steatosis. No focal masses are visualized. Gallbladder: Surgically absent Spleen: Normal in size and attenuation. Pancreas: Unremarkable. Adrenal glands: Unremarkable. Kidneys: There is symmetric renal cortical enhancement. The kidneys are normal in size without hydronephrosis. Bowel: There are no transition zones indicate bowel obstruction. By history the appendix is surgically absent. There is no acute diverticulitis. Borderline bowel wall thickening involving the sigmoid colon, likely secondary to incomplete distention Peritoneum: There is no intraperitoneal free air or abdominal ascites. Vasculature: The abdominal aorta is normal in course and caliber. Adenopathy: None. Pelvic viscera: 29 mm right ovarian follicle. Skeletal structures: No destructive osseous lesions are seen. IMPRESSION: 1. Surgically absent gallbladder and appendix 2. Hepatic steatosis 3. No evidence of bowel obstruction. No evidence of free air 4. No evidence of acute diverticulitis. 5. 29 mm right ovarian follicle Electronically signed by: Wilberto Posey M.D. 07/27/2017 4:34 PM Dictated Date/Time: 07/27/2017 4:30 PM
[2017-07-27 17:32] VITALS: BP 180/98; PULSE 72; O2SAT 99
--- NOTE | 2017-07-27 18:59 | EMERGENCY ROOM VISIT NOTE ---
History Report prepared by Kaya: Darvin Vasques Under the Supervision of: Dr. Ricardo Pablo M.D. First contact with patient: 12:47 Chief Complaint: ABDOMINAL PAIN Stated Complaint: L SIDE PAIN History of Present Illness The patient is a 37 year old female who presents to the Emergency Room with complaints of intermittent right sided abdominal pain that started last night. The patient rates her pain as a 7/10 in severity. She describes the pain as sharp. The patient admits that she woke up this morning and the pain worsened. She reports that she has had left sided abdominal pain in the past, and reports that her pain is similar to her previous experience. The patient states that the pain feels as if it is kidney stones. She admits to also experiencing nausea and loose diarrhea for the last couple of days. The patient denies any blood in her diarrhea but describes it as "mucous". She reports that her diarrhea is fairly resolved today. The patient admits that she has been urinating frequently, but denies a large amount of urine when she goes to the bathroom. The patient admits that she was here in January for pain and had colitis on her CAT scan. She reports that she had a colonoscopy in January, but reports that the results were normal. She was diagnosed with IBS. She denies any history of Crohn's disease or inflammatory bowel disease in the family. The patient states that she has a history of an appendectomy and cholecystectomy. The patient denies any fever and vomiting. Source of History: patient Onset: last night Position: abdomen (right sided) Symptom Intensity: 7/10 Quality: sharp (f) Timing: intermittent Associated Symptoms: + nausea, + diarrhea, + urinary symptoms, No fevers, No vomiting Review of Systems See HPI for pertinent positives & negatives. A total of 10 systems reviewed and were otherwise negative. Past Medical & Surgical Medical Problems: (1) Hypertension Surgical Problems: (1) H/O tubal ligation (2) History of cholecystectomy (3) Hx of appendectomy Family History Cancer Diabetes mellitus Hypertension Seizures Social History Smoking Status: Current Every Day Smoker Alcohol Use: none Drug Use: none Marital Status: Housing Status: lives with family Occupation Status: employed Current/Historical Medications Scheduled Amlodipine Besylate (Norvasc), 5 MG PO DAILY Insulin Glargine (Lantus Solostar), 100 UNITS SC QAM Liraglutide (Victoza), 1.8 MG INJ DAILY Losartan Potassium (Cozaar), 100 MG PO DAILY Metoprolol Succinate (Toprol Xl), 25 MG PO DAILY Trazodone Hcl (Trazodone), 100 MG PO HS Scheduled PRN Hyoscyamine Sulfate (Hyoscyamine Sulfate), 1 TAB PO TID PRN for STOMACH PAIN Allergies Coded Allergies: Doxycycline (Unverified Allergy, Severe, GI ISSUES. SEVERE VOMITING, ) Ketorolac Tromethamine (Verified Allergy, Unknown, "feels like I am having an anxiety attack", 07/27/17) Metoclopramide (Unverified Allergy, Unknown, HEART RATE INCREASES, ANXIETY , 07/27/17) Prochlorperazine (Verified Allergy, Unknown, "feels like I am having an anxiety attack", 07/27/17) Promethazine (Verified Allergy, Unknown, "feels like I am having an anxiety attack", 07/27/17) Venlafaxine (Unverified Allergy, Unknown, TREMORS, 07/27/17) Physical Exam Vital Signs Date Time Temp Pulse Resp B/P (MAP) Pulse Ox O2 Delivery O2 Flow Rate FiO2 07/27/17 17:32 72 20 180/98 99 07/27/17 16:36 92 19 172/106 97 Room Air 07/27/17 16:15 87 15 174/106 95 Room Air 07/27/17 15:11 87 17 166/91 97 Room Air 07/27/17 14:08 90 18 180/100 98 Room Air 07/27/17 12:43 36.8 101 18 207/110 96 Room Air Physical Exam Constitutional: Vital signs reviewed. Eyes: Pupils are equal round reactive to light. Conjunctiva are noninjected. ENT: Pharynx is clear without erythema or exudate. Mucous membranes are moist. Neck supple without meningeal signs. Respiratory: Clear to auscultation bilaterally. Breath sounds are equal bilaterally. Cardiovascular: Regular rate and rhythm. No rubs or gallops. GI: RLQ tenderness with mild rebound. Bowel sounds are present. Musculoskeletal: No peripheral edema. No CVA tenderness. Integumentary: No cyanosis. Neurological: The patient is awake and alert. No focal deficits. Psychiatric: Normal affect. Medical Decision & Procedures ER Provider Diagnostic Interpretation: Radiology results as stated below per my review and the radiologist's interpretation: EXAMINATION: RENAL ULTRASOUND CLINICAL HISTORY: Right flank pain COMPARISON STUDY: CT scan dated 01/27/2017 FINDINGS: The right kidney measures 12.3 cm. The left kidney measures 12.9 cm. There is no evidence of hydronephrosis. There are no renal masses. No bladder abnormalities are visualized. Bilateral ureteral jets were visualized. IMPRESSION : Normal renal ultrasound. Electronically signed by: Wilberto Posey M.D. 07/27/2017 2:39 PM Dictated Date/Time: 07/27/2017 2:[address] ABD/PELVIS IV AND ORAL CONT CLINICAL HISTORY: Right sided abdominal pain COMPARISON STUDY: 01/27/2017 TECHNIQUE: Following the IV administration of 120 mL of Optiray-320, CT scan of the abdomen and pelvis was performed from the lung bases to the proximal femurs. Images are reviewed in the axial, sagittal, and coronal planes. IV contrast was administered without complication. A dose lowering technique was utilized adhering to the principles of ALARA. CT DOSE: 1052.89 mGy.cm FINDINGS: Lower chest: The heart is normal in size and configuration, without pericardial effusion. The lung bases and pleural spaces are clear. Liver: There is mild hepatic steatosis. No focal masses are visualized. Gallbladder: Surgically absent Spleen: Normal in size and attenuation. Pancreas: Unremarkable. Adrenal glands: Unremarkable. Kidneys: There is symmetric renal cortical enhancement. The kidneys are normal in size without hydronephrosis. Bowel: There are no transition zones indicate bowel obstruction. By history the appendix is surgically absent. There is no acute diverticulitis. Borderline bowel wall thickening involving the sigmoid colon, likely secondary to incomplete distention Peritoneum: There is no intraperitoneal free air or abdominal ascites. Vasculature: The abdominal aorta is normal in course and caliber. Adenopathy: None. Pelvic viscera: 29 mm right ovarian follicle. Skeletal structures: No destructive osseous lesions are seen. IMPRESSION: 1. Surgically absent gallbladder and appendix 2. Hepatic steatosis 3. No evidence of bowel obstruction. No evidence of free air 4. No evidence of acute diverticulitis. 5. 29 mm right ovarian follicle Electronically signed by: Wilberto Posey M.D. 07/27/2017 4:34 PM Dictated Date/Time: 07/27/2017 4:30 PM Laboratory Results 07/27/17 13:05 Red Blood Count 4.68, Mean Corpuscular Volume 89.5, Mean Corpuscular Hemoglobin 32.3, Mean Corpuscular Hemoglobin Concent 36.0, Mean Platelet Volume 11.5, Neutrophils (%) (Auto) 70.2, Lymphocytes (%) (Auto) 21.6, Monocytes (%) (Auto) 6.3, Eosinophils (%) (Auto) 1.5, Basophils (%) (Auto) 0.2, Neutrophils # (Auto) 5.76, Lymphocytes # (Auto) 1.77, Monocytes # (Auto) 0.52, Eosinophils # (Auto) 0.12, Basophils # (Auto) 0.02 07/27/17 13:05 Test 07/27/17 10:30 07/27/17 13:05 Urine Color ORANGE Urine Appearance CLEAR (CLEAR) Urine pH 7.0 (4.5-7.5) Urine Specific [employer] 1.030 (1.000-1.030) Urine Protein NEG (NEG) Urine Glucose (UA) 2+ (NEG) Urine Ketones NEG (NEG) Urine Occult Blood 3+ (NEG) Urine Nitrite NEG (NEG) Urine Bilirubin NEG (NEG) Urine Urobilinogen NEG (NEG) Urine Leukocyte Esterase TRACE (NEG) Urine WBC (Auto) 1-5 /hpf (0-5) Urine RBC (Auto) >30 /hpf (0-4) Urine Hyaline Casts (Auto) 1-5 /lpf (0-5) Urine Epithelial Cells (Auto) >30 /lpf (0-5) Urine Bacteria (Auto) 1+ (NEG) White Blood Count 8.21 K/uL (4.8-10.8) Red Blood Count 4.68 M/uL (4.2-5.4) Hemoglobin 15.1 g/dL (12.0-16.0) Hematocrit 41.9 % (37-47) Mean Corpuscular Volume 89.5 fL (80-100) Mean Corpuscular Hemoglobin 32.3 pg (25-34) Mean Corpuscular Hemoglobin Concent 36.0 g/dl (32-36) Platelet Count 195 K/uL (130-400) Mean Platelet Volume 11.5 fL (7.4-10.4) Neutrophils (%) (Auto) 70.2 % Lymphocytes (%) (Auto) 21.6 % Monocytes (%) (Auto) 6.3 % Eosinophils (%) (Auto) 1.5 % Basophils (%) (Auto) 0.2 % Neutrophils # (Auto) 5.76 K/uL (1.4-6.5) Lymphocytes # (Auto) 1.77 K/uL (1.2-3.4) Monocytes # (Auto) 0.52 K/uL (0.11-0.59) Eosinophils # (Auto) 0.12 K/uL (0-0.5) Basophils # (Auto) 0.02 K/uL (0-0.2) RDW Standard Deviation 44.6 fL (36.4-46.3) RDW Coefficient of Variation 13.6 % (11.5-14.5) Immature Granulocyte % (Auto) 0.2 % Immature Granulocyte # (Auto) 0.02 K/uL (0.00-0.02) Urine Test NEG (NEG) Anion Gap 5.0 mmol/L (3-11) Est Creatinine Clear Calc Drug Dose 110.5 ml/min Estimated GFR () 106.0 Estimated GFR (Non- 91.5 BUN/Creatinine Ratio 19.6 (10-20) Calcium Level 9.2 mg/dl (8.5-10.1) Total Bilirubin 0.3 mg/dl (0.2-1) Direct Bilirubin 0.1 mg/dl (0-0.2) Aspartate Amino Transf (AST/SGOT) 25 U/L (15-37) Alanine Aminotransferase (ALT/SGPT) 39 U/L (12-78) Alkaline Phosphatase 93 U/L (45-117) Total Protein 7.4 gm/dl (6.4-8.2) Albumin 3.6 gm/dl (3.4-5.0) Lipase 90 U/L (73-393) Laboratory results as reviewed by me. Medications Administered Medications (Trade) Dose Ordered Sig/Fatimah Route Start Time Stop Time Status Last Admin Dose Admin Morphine Sulfate (MoRPHine SULFATE INJ) 4 mg ONE STAT IV 07/27/17 12:55 07/27/17 12:57 DC 07/27/17 13:21 4 MG Ondansetron HCl (Zofran Inj) 4 mg NOW STAT IV 07/27/17 12:55 07/27/17 12:57 DC 07/27/17 13:20 4 MG Sodium Chloride 1,000 ml @ 999 mls/hr Q1H1M STAT IV 07/27/17 12:55 07/27/17 13:55 DC 07/27/17 12:55 999 MLS/HR Morphine Sulfate (MoRPHine SULFATE INJ) 4 mg NOW STAT IV 07/27/17 14:44 07/27/17 14:45 DC 07/27/17 15:02 4 MG Ondansetron HCl (Zofran Inj) 4 mg NOW STAT IV 07/27/17 14:44 07/27/17 14:45 DC 07/27/17 15:01 4 MG ED Course 1249: The patient was evaluated in room A11B. A complete history and physical exam was performed. 1255: Ordered Sodium Chloride 1000 ml @ 999 mls/hr IV, Zofran Injection 4 mg IV , Morphine Sulfate 4 mg IV. 1406: I reevaluated the patient and she is feeling slightly better. 1444: Ordered Zofran Injection 4 mg IV, Morphine Sulfate 4 mg IV. 1451: I discussed the ultrasound results with the patient and she agrees to proceed with the CT scan. 1650: I reevaluated the patient and she is still experiencing some pain. 1712: I reevaluated the patient and discussed test results. Medical Decision This is a 37-year-old female who presents with right-sided abdominal pain. Differential diagnosis includes kidney stone, hydronephrosis, stump appendicitis , pancreatitis, colitis, inflammatory bowel disease. I did perform a limited focused review of portions of the patient's old chart on the electronic medical record. The patient has had a Catscan of her abdomen and pelvis in January, which showed thickening of the descending and sigmoid colon. I did evaluate the patient as noted above. IV access was established. I did treat the patient with IV morphine and Zofran. She was also given normal saline IV. I did order and personally review the patient's urinalysis as described in above. I did order and review the patient's blood work as noted in the electronic medical record. Her white blood cell count is not elevated. LFTs are unremarkable. I did order an ultrasound of the kidneys which was unremarkable. I did reevaluate the patient. She is still having pain and was given additional morphine IV. After discussion with the patient, I did order a CT of the abdomen and pelvis. I did review the images myself as well as the radiology report as described above. There is no evidence of acute process. She does appear to have a right ovarian follicle measuring 2.9 cm. I did discuss the test results with the patient. I did recommend she follow closely with her doctor OFFICE ADMINISTRATOR doctor. She was advised to take Tylenol or Motrin for pain. She was discharged in good condition and given return instructions as outlined below. Medication Reconcilliation Current Medication List: was personally reviewed by me Blood Pressure Screening Patient's blood pressure: Elevated blood pressure Impression Primary Impression: Right sided abdominal pain Additional Impression: Unspecified ovarian cyst, right side Scribe Attestation The scribe's documentation has been prepared under my direct and personally reviewed by me in its entirety. I confirm that the note above accurately reflects all work, treatment, procedures, and medical decision making performed by me. Departure Information Dispostion Home / Self-Care Referrals No Doctor, Assigned (PCP) Forms Call Back Authorization, HOME CARE DOCUMENTATION FORM, IMPORTANT VISIT INFORMATION Patient Instructions ED Cyst Ovarian, My [facility] Additional Instructions You have been examined and treated today on an emergency basis only. This is not a substitute for, or an effort to provide, complete comprehensive medical care. It is impossible to recognize and treat all injuries or illnesses in a single emergency department visit. It is therefore important that you follow up closely with your physician/produce manager. Call as soon as possible for an appointment. Return for worsening symptoms or if you develop fever, vomiting, or any other concerning symptoms. Problem Qualifiers
== END 2017-07-27 17:34 | disposition home or self-care (01) ==
LOC: C.EDB 12:29 → C.EDA 17:34
DX: R10.9 Unspecified abdominal pain (principal); N83.201 Unspecified ovarian cyst, right side; I10 Essential (primary) hypertension; K58.9 Irritable bowel syndrome, unspecified; Z80.9 Family history of malignant neoplasm, unspecified; Z83.3 Family history of diabetes mellitus; Z82.49 Family history of ischemic heart disease and other diseases of the circulatory system; F17.210 Nicotine dependence, cigarettes, uncomplicated; Z79.4 Long term (current) use of insulin; Z79.899 Other long term (current) drug therapy

== ENCOUNTER 2018-06-16 22:24 | Emergency (ER) | payer OTHER ==
[~2018-06-16] VITALS: Ht 162.6 cm; Wt 109.6 kg
[~2018-06-16 22:24] MED LIST changes: +HYOS0.1271 PO; -LIRA18IN INJ; +LIRA18IN SC; -METO25TA3 PO
[2018-06-16 22:32] VITALS: TEMP 36.8; Ht 162.6 cm; Wt 109.6 kg
[2018-06-16] MEDS ORDERED: ONDANSETRON INJ 2 MG/ML 2 ML VIAL IV STA (22:58)
[2018-06-16] MEDS ORDERED: MoRPHine SULFATE 4 MG/ML 1 ML CARP\\VIAL IV ONE (23:00)
[2018-06-16] MEDS ORDERED: SODIUM CHLORIDE 0.9% 1000ML 1,000 ML IV ONE (23:00)
[2018-06-16 23:16] LABS: BASO % 0.2 %; BASO ABS # 0.02 K/uL (0-0.2); EOS % 1.3 %; EOS ABS # 0.11 K/uL (0-0.5); HEMATOCRIT 42.7 % (37-47); HEMOGLOBIN 14.9 g/dL (12.0-16.0); IG# 0.02 K/uL (0.00-0.02); LYMPH % 22.2 %; LYMPH ABS # 1.86 K/uL (1.2-3.4); MEAN CELL VOLUME 89.5 fL (80-100); MEAN CORPUSCULAR HEMOGLOBIN 31.2 pg (25-34); MEAN CORPUSCULAR HGB CONC 34.9 g/dl (32-36); MONO % 7.4 %; MONO ABS # 0.62 K/uL (0.11-0.59); NEUT % 68.7 %; NEUT ABS # 5.76 K/uL (1.4-6.5); PLATELET COUNT 184 K/uL (130-400); RED CELL DISTRIBUTION WIDTH CV 13.4 % (11.5-14.5); RED CELL DISTRIBUTION WIDTH SD 43.9 fL (36.4-46.3); WHITE BLOOD COUNT 8.39 K/uL (4.8-10.8)
[2018-06-16 23:35] LABS: ALBUMIN 3.5 gm/dl (3.4-5.0); CALCIUM 8.8 mg/dl (8.5-10.1); CREATININE 0.76 mg/dl (0.60-1.20); POTASSIUM 3.6 mmol/L (3.5-5.1); TOTAL PROTEIN 7.5 gm/dl (6.4-8.2)
[2018-06-17 00:49] VITALS: BP 182/117; PULSE 93; O2SAT 96
--- NOTE | 2018-06-17 05:10 | EMERGENCY ROOM VISIT NOTE ---
History First contact with patient: 22:49 Chief Complaint: FLANK PAIN Stated Complaint: PAIN BEHIND RIBS AND BACK SUGAR 300 History of Present Illness The patient is a 38 year old female who presents to the Emergency Room with complaints of left flank pain for the past 1 day. The patient reports a history of kidney stones and is concerned that she may have another one. She is diabetic and states that her sugar at home has been greater than 300. She has had urinary frequency, but she is unsure if this is from a kidney stone or her sugar being elevated. She does take Lantus on a daily basis, but has not changed her dosing. The patient attempted to get in with her primary care physician, however she was not able to do so today, prompting her presentation. The patient has not had fever or chills. No chest pain, chest tightness, or shortness of breath. She rates her discomfort an 8/10. She does not identify aggravating or alleviating factors. She is without a gallbladder or appendix. Review of Systems More than 10 systems were reviewed and otherwise negative with the exception of history of present illness. Past Medical/Surgical History Medical Problems: (1) Hypertension Surgical Problems: (1) H/O tubal ligation (2) History of cholecystectomy (3) Hx of appendectomy Family History Cancer Diabetes mellitus Hypertension Seizures Social History Smoking Status: Current Every Day Smoker Alcohol Use: none Drug Use: none Marital Status: Housing Status: lives with family Occupation Status: employed Current/Historical Medications Scheduled Amlodipine Besylate (Norvasc), 5 MG PO DAILY Insulin Glargine (Lantus Solostar), 80 UNITS SC QAM Liraglutide (Victoza), 1.8 MG SC DAILY Losartan Potassium (Cozaar), 100 MG PO DAILY Trazodone Hcl (Trazodone), 100 MG PO HS Scheduled PRN Hyoscyamine Sulfate (Hyoscyamine Sulfate), 0.125 MG PO TID PRN for Abdominal Pain Physical Exam Vital Signs Date Time Temp Pulse Resp B/P (MAP) Pulse Ox O2 Delivery O2 Flow Rate FiO2 06/17/18 00:49 93 18 182/117 96 06/16/18 23:32 94 18 157/101 96 Room Air 06/16/18 22:32 36.8 112 18 174/108 97 Room Air Physical Exam VITALS: Vitals are noted on the nurse's note and reviewed by myself. Vital signs stable. GENERAL: Well-developed, well-nourished, white female, who is in no acute distress and resting comfortably. Patient is cooperative with the examination. HEAD: Normocephalic atraumatic. NECK: Supple without nuchal rigidity. No lymphadenopathy. No thyromegaly. Cervical spine is nontender. HEART: Regular rate and rhythm without murmurs gallops or rubs. LUNGS: Clear to auscultation bilaterally without wheezes, rales or rhonchi. No retractions or accessory muscle use. ABDOMEN: Positive normal bowel sounds x 4. Soft, nontender, without masses or organomegaly. No guarding or rebound tenderness. MUSCULOSKELETAL: No muscle atrophy, erythema, or edema noted. Full range of motion in all extremities. Medical Decision & Procedures ER Provider Diagnostic Interpretation: Preliminary Findings Only See Final Report For Complete Findings CT ABDOMEN & PELVIS Without Contrast: No renal calculi or obstructive changes. Fatty liver. Cholecystectomy. Bulbous left adrenal gland. Appendix not identified. No colitis. Laboratory Results 06/16/18 22:45 Red Blood Count 4.77, Mean Corpuscular Volume 89.5, Mean Corpuscular Hemoglobin 31.2, Mean Corpuscular Hemoglobin Concent 34.9, Mean Platelet Volume 12.0, Neutrophils (%) (Auto) 68.7, Lymphocytes (%) (Auto) 22.2, Monocytes (%) (Auto) 7.4, Eosinophils (%) (Auto) 1.3, Basophils (%) (Auto) 0.2, Neutrophils # (Auto) 5.76, Lymphocytes # (Auto) 1.86, Monocytes # (Auto) 0.62, Eosinophils # (Auto) 0.11, Basophils # (Auto) 0.02 06/16/18 22:45 Test 06/16/18 22:40 06/16/18 22:45 Urine Color YELLOW Urine Appearance CLEAR (CLEAR) Urine pH 7.5 (4.5-7.5) Urine Specific [employer] 1.022 (1.000-1.030) Urine Protein NEG (NEG) Urine Glucose (UA) 3+ (NEG) Urine Ketones NEG (NEG) Urine Occult Blood NEG (NEG) Urine Nitrite NEG (NEG) Urine Bilirubin NEG (NEG) Urine Urobilinogen NEG (NEG) Urine Leukocyte Esterase NEG (NEG) Urine Opiates Screen POS (NEG) Urine Methadone, Qualitative NEG (NEG) Urine Barbiturates NEG (NEG) Urine Phencyclidine (PCP) Level NEG (NEG) Ur Amphetamine/Methamphetamine NEG (NEG) MDMA (Ecstasy) Screen NEG (NEG) Urine Benzodiazepines Screen NEG (NEG) Urine Cocaine Metabolite NEG (NEG) Urine Marijuana (THC) NEG (NEG) White Blood Count 8.39 K/uL (4.8-10.8) Red Blood Count 4.77 M/uL (4.2-5.4) Hemoglobin 14.9 g/dL (12.0-16.0) Hematocrit 42.7 % (37-47) Mean Corpuscular Volume 89.5 fL (80-100) Mean Corpuscular Hemoglobin 31.2 pg (25-34) Mean Corpuscular Hemoglobin Concent 34.9 g/dl (32-36) Platelet Count 184 K/uL (130-400) Mean Platelet Volume 12.0 fL (7.4-10.4) Neutrophils (%) (Auto) 68.7 % Lymphocytes (%) (Auto) 22.2 % Monocytes (%) (Auto) 7.4 % Eosinophils (%) (Auto) 1.3 % Basophils (%) (Auto) 0.2 % Neutrophils # (Auto) 5.76 K/uL (1.4-6.5) Lymphocytes # (Auto) 1.86 K/uL (1.2-3.4) Monocytes # (Auto) 0.62 K/uL (0.11-0.59) Eosinophils # (Auto) 0.11 K/uL (0-0.5) Basophils # (Auto) 0.02 K/uL (0-0.2) RDW Standard Deviation 43.9 fL (36.4-46.3) RDW Coefficient of Variation 13.4 % (11.5-14.5) Immature Granulocyte % (Auto) 0.2 % Immature Granulocyte # (Auto) 0.02 K/uL (0.00-0.02) Anion Gap 8.0 mmol/L (3-11) Est Creatinine Clear Calc Drug Dose 119.1 ml/min Estimated GFR () 113.7 Estimated GFR (Non- 98.1 BUN/Creatinine Ratio 10.9 (10-20) Calcium Level 8.8 mg/dl (8.5-10.1) Total Bilirubin 0.2 mg/dl (0.2-1) Aspartate Amino Transf (AST/SGOT) 56 U/L (15-37) Alanine Aminotransferase (ALT/SGPT) 64 U/L (12-78) Alkaline Phosphatase 103 U/L (45-117) Total Protein 7.5 gm/dl (6.4-8.2) Albumin 3.5 gm/dl (3.4-5.0) Globulin 4.0 gm/dl (2.5-4.0) Albumin/Globulin Ratio 0.9 (0.9-2) Lipase 89 U/L (73-393) Medications Administered Medications (Trade) Dose Ordered Sig/Fatimah Route Start Time Stop Time Status Last Admin Dose Admin Sodium Chloride 1,000 ml @ 999 mls/hr Q1H1M ONCE IV 06/16/18 23:00 8 00:00 DC 06/16/18 23:15 999 MLS/HR Morphine Sulfate (MoRPHine SULFATE INJ) 4 mg NOW ONCE IV 06/16/18 23:00 06/16/18 23:01 DC 06/16/18 23:16 4 MG Ondansetron HCl (Zofran Inj) 4 mg NOW STAT IV 06/16/18 22:58 06/16/18 23:01 DC 06/16/18 23:15 4 MG ED Course Physical exam and history were performed. Nursing notes, EMR, and Medication List were personally reviewed. Patient appears to have left flank pain bringing her to the emergency department today. The patient reports a history of ureteral calculi in the past , and evidently this feels similar to her. IV access was established and labs were obtained. She was hydrated and medicated as above. Because of her symptoms I did elect to perform CT scan without contrast. The patient's blood work is as above and was reviewed. She does not have a significantly elevated white blood cell count, gross anemia, bandemia, or significant electrolyte imbalance. Lipase and transaminases are not diagnostic. Urine is without evidence of infection. Her remaining labs are unremarkable. The patient's CT scan does not show evidence of acute findings such as ureteral calculi, obstruction, or obvious infection. On reevaluation the patient was resting very comfortably in her ER room. She continues with a soft and nontender abdomen. Overall the patient appears well for discharge home. Clinically her symptoms may represent a musculoskeletal etiology, and she will be treated conservatively. The patient is to follow with her primary care physician for further care management. She was otherwise invited back to the ER with any new, worsening, or concerning symptoms. The chart was completed utilizing [employer] Speech Voice Recognition Software. Grammatical errors, random word insertions, pronoun errors, and incomplete sentences are an occasional consequence of this system due to software limitations, ambient noise, and hardware issues. Any formal questions or concerns about the content, text, or information contained within the body of this dictation should be directly addressed to the provider for clarification. . Medical Decision Differential diagnosis: Etiologies such as renal colic, appendicitis, diverticulitis, mesenteric ischemia, aortic pathology, infections, inflammatory bowel disease, PUD, biliary pathology, UTI, as well as others were entertained. Impression Primary Impression: Left flank pain Additional Impression: Elevated blood sugar Departure Information Dispostion Home / Self-Care Condition GOOD Forms HOME CARE DOCUMENTATION FORM, IMPORTANT VISIT INFORMATION Patient Instructions My [facility] Additional Instructions You were seen and evaluated today on an emergency basis only. This is not a substitute for, or an effort to provide, complete comprehensive medical care. It is not possible to recognize and treat all injuries or illnesses in a single emergency department visit. For this reason it is recommended that you followup with your primary care physician this week for ongoing care and and evaluation. Continue your at-home medications as prescribed. Continue to watch your blood sugar closely. You may need to increase your insulin. Drink plenty of water and remain well-hydrated You are welcome to return to the emergency department anytime with new, worsening, or concerning symptoms. Problem Qualifiers
--- NOTE | 2018-06-17 07:19 | DIAGNOSTIC IMAGING REPORT ---
CT OF THE ABDOMEN AND PELVIS WITHOUT CONTRAST CLINICAL HISTORY: Left flank pain. COMPARISON STUDY: CT of the abdomen and pelvis April 07, 2018. TECHNIQUE: Axial images of the abdomen and pelvis were obtained without IV contrast. Images were reviewed in the axial, sagittal, and coronal planes. A dose lowering technique was utilized adhering to the principles of ALARA. FINDINGS: Lung bases are clear. Left adrenal nodularity is unchanged and is benign. Fatty infiltration of the liver is noted. Unenhanced images of the spleen and pancreas are unremarkable. No renal, ureteral or bladder calculi are identified. There is no hydronephrosis or hydroureter. There is no evidence for a bowel obstruction. The appendix is not visualized. However, there is no right lower quadrant inflammation. No lymphadenopathy or ascites is present. There are no suspicious osseous lesions. IMPRESSION: 1. No urinary calculi or hydronephrosis. 2. No acute process within the abdomen or pelvis on unenhanced exam. No bowel obstruction. 3. Fatty liver. Electronically signed by: Lars Beltran M.D. 06/17/2018 7:18 AM Dictated Date/Time: 06/17/2018 7:13 AM
== END 2018-06-17 00:47 | disposition home or self-care (01) ==
LOC: C.EDB 22:25 → C.EDA 06-17 00:47
DX: R10.9 Unspecified abdominal pain (principal); E11.65 Type 2 diabetes mellitus with hyperglycemia; Z79.4 Long term (current) use of insulin; Z87.442 Personal history of urinary calculi; I10 Essential (primary) hypertension; F17.200 Nicotine dependence, unspecified, uncomplicated